=== PATIENT | female | born 1955 | race Caucasian/White ===

== ENCOUNTER 2024-06-13 11:47 | Emergency (ER) | payer MEDICARE, SELFPAY ==
[2024-06-13 11:51] VITALS: BP 139/65; PULSE 88; RESP 18; TEMP 37.2; O2SAT 96; BMI 51.4
--- NOTE | 2024-06-13 12:53 | ED_ITS ---
HPI - Abdominal Pain General Time Seen by Provider: 12:53 Date Seen: 06/13/24 Chief Complaint: Abdominal Pain Stated Complaint: severe left lower abdominal pain Time Seen by Provider: 06/13/24 12:28 Source: patient and RN notes reviewed Mode of arrival: ambulatory Limitations: no limitations History of Present Illness HPI narrative: This 68-year-old female is coming in with intermittent left-sided lower abdominal pain starting around 4:00 a.m. this morning. It awoke her from sleep. Thursday she did have some diarrhea but none since. She also tripped and fell fo rward landing on her walker on Thursday, she has a bruise across her left upper thigh but did not note any abdominal symptoms until this morning. She does have a history kidney stones, last time about 10 years ago. She feels her symptoms are reminiscent. She will have waves of significant pain, will feel chilled and warm with those but no fevers noted. She has also had some nausea and dry heaves with the times of increased pain. Right now she is feeling pretty good, does not need anything for nausea or pain management. She notes no change in urination. She has not had any prior abdominal surgeries per her report. Related Data Home Medications ?Medication ?Instructions ?Recorded ?Confirmed lisinopril 20 1 tab PO DAILY 06/13/24 06/13/24 mg-hydrochlorothiazide 25 mg tablet metoprolol succinate 200 mg 200 mg PO DAILY 06/13/24 06/13/24 tablet,extended release 24 hr Previous Rx's ?Medication ?Instructions ?Recorded ondansetron 4 mg disintegrating 4 mg PO Q6H PRN nausea and 06/13/24 tablet vomiting #10 tabs oxycodone 5 mg tablet 2.5 - 5 mg (0.5 - 1 x 5 mg) PO Q6H 06/13/24 PRN pain #10 tabs tamsulosin 0.4 mg capsule (Flomax) 0.4 mg PO DAILY #7 caps 06/13/24 Allergies Allergy/AdvReac Type Severity Reaction Status Date / Time No Known Drug Allergies Allergy Verified 06/13/24 11:57 Review of Systems Status of ROS Reports: 6 or more systems reviewed and unremarkable except as noted in History and below PFSH PFSH Social History service: No Exam Const: Vital Signs, click to edit/add: Vital Signs - 24 hr 06/13/24 11:51 Temperature 99.0 F Pulse Rate [Right Pulse Oximeter] 88 Respiratory Rate 18 Blood Pressure [Ri ght Forearm] 139/65 Pulse Oximetry 96 Oxygen Delivery Me thod Room Air This 68-year-old female is alert, interactive, no apparent distress, very pleasant. Sclera clear, face atraumatic, able to speak in complete sentences with normal speech. Lungs are clear, good air entry, no wheezing crackles, no tachypnea accessory muscle use. She has a scar in the left shoulder blade area from prior skin lesion removal towards the center of the spine there is an irregular raise lesion on pinkish colored skin, some adherent scale to the area. Patient's attention is drawn to this lesion overlying the spine, do think that this should potentially be biopsied or further evaluated by her primary care lorena blanco. Have told her about this. She has no CVA tenderness. CV regular rate and rhythm, do not hear any significant murmur. Abdomen is obese but soft, no rebound or guarding, no organomegaly. She has no inguinal masses or bulging or tenderness. Documenting provider has reviewed patient's vital signs: yes Course Course ED Course: Patient is having intermittent significant left-sided abdominal pain that does seem to be consistent with renal colic. Will attempt to get a UA, basic labs on her. Will start with CT imaging noncontrast. Does not sound like this is linked any trauma but do need to keep that in consideration. Can consider doing follow-up imaging with IV contrast if deemed to be necessary. Right now patient is clinically stable, did not need any pain or nausea medicines but is aware to update us if this is changing. Other considerations are other intra-abdominal etiologies like diverticulitis other bowel pathologies. Do think urinary system is most likely with renal colic. Reevaluation(s) Time of Reevaluation #1: 15:03 Reevaluation #1: Have advised patient that there is a 4 mm kidney stone on the left side. Did provider copy of the CT. We are waiting kidney functions at this time. Her pain is returning. Will give her some IV fentanyl and IV Zofran while we await kidney functions. Did discuss doing the smooth muscle dilator Flomax, a 4 mm kidney stone should pass but this may help dilate the system. It may take days up to couple weeks to pass. Will plan on discharge to home and and outpatient management. Need to figure out a pain strategy for her and need kidney functions before I can fully decide on that. Time of Reevaluation #2: 15:34 Reevaluation #2: Have reviewed with patient that her kidney function does not allow NSAIDs. We discussed that this is a normal aging process with kidney function. We will have her take Tylenol 1000 mg 3 times a day baseline for pain but did review she will probably need something else. She has used some pain meds in the past but cannot remember what. The fentanyl has helped her here. Will give her some oxycodone to use at home for pain uncontrolled by a baseline Tylenol. She is aware that she will need to follow-up. We have also discussed the Zofran and Flomax. Vital Signs Vital signs: Initial Vital Signs Temperature 99.0 F 06/13/24 11:51 Temperature Source Temporal Artery Scan 06/13/24 11:51 Pulse Rate 88 06/13/24 11:51 Pulse Rhythm Regular 06/13/24 11:51 Pulse Strength 3+ Normal 06/13/24 11:51 Respiratory Rate 18 06/13/24 11:51 Blood Pressure 139/65 06/13/24 11:51 Blood Pressure Mean 89 06/13/24 11:51 Blood Pressure Position Sitting 06/13/24 11:51 Pulse Oximetry 96 06/13/24 11:51 Oxygen Delivery Method Room Air 06/13/24 11:51 Vital Signs Temperature 99.0 F 06/13/24 11:51 Pulse Rate 88 06/13/24 11:51 Respiratory Rate 18 06/13/24 11:51 Blood Pressure 139/65 06/13/24 11:51 Pulse Oximetry 96 06/13/24 11:51 Oxygen Delivery Method Room Air 06/13/24 11:51 Temperature 99.0 F 06/13/24 11:51 Pulse Rate 88 06/13/24 11:51 Respiratory Rate 18 06/13/24 11:51 Blood Pressure 139/65 06/13/24 11:51 Pulse Oximetry 96 06/13/24 11:51 Oxygen Delivery Method Room Air 06/13/24 11:51 Medications Administered Medications: Discontinued Medications Generic Name Dose Route Start Last Admin Trade Name Freq PRN Reason Stop Dose Admin Fentanyl 25 mcg 06/13/24 14:59 06/13/24 15:06 Fentanyl 100 Mcg/2 Ml Inj IVP 06/13/24 15:00 25 mcg ONCE ONE Administration Ondansetron HCl 4 mg 06/13/24 14:59 06/13/24 15:11 Ondansetron 2 Mg/Ml Inj IVP 06/13/24 15:00 4 mg ONCE ONE Administration MDM - Abdominal Pain Lab Data Attestation: I reviewed the patient's lab results. Labs: Lab Results 06/13/24 06/13/24 Range/Units 13:00 14:40 WBC 11.37 H (4.50-11.00) K/uL RBC 4.24 (4.00-5.20) m/uL Hgb 13.2 (12.0-16.0) gm/dL Hct 39.7 (33.0-51.0) % MCV 94 (80-100) fL MCH 31 (26-34) pg MCHC 33 (32-36) gm/dL RDW Coeff of Zakia 12.3 (11.5-15.5) % Plt Count 200 (140-440) K/uL Neut % (Auto) 81.5 H (42.0-72.0) % Lymph % (Auto) 10.3 L (20-44) % Saunders % (Auto) 7.6 (0.0-11.0) % Eos % (Auto) 0.1 (0.0-7.0) % Baso % (Auto) 0.2 (0.0-3.0) % Neut # (Auto) 9.30 H (1.7-7.0) K/uL Lymph # (Auto) 1.20 (0.90-2.90) K/uL Saunders # (Auto) 0.90 (0.00-0.90) K/UL Eos # (Auto) 0.00 (0.00-0.50) K/uL Baso # (Auto) 0.00 (0.00-0.30) K/uL Abs Immat Gran (auto) 0.00 (0.00-0.30) K/uL Imm/Tot Granulo (auto) 0.3 % Sodium 137 (135-149) mmol/L Potassium 4.2 (3.6-5.1) mmol/L Chloride 103 (96-114) mmol/L Carbon Dioxide 28 (20-32) mmol/L Anion Gap 6 L (7-15) mEq/L BUN 25 (7-30) mg/dL Creatinine 0.9 (0.5-1.5) mg/dL Estimated Creat Clear 43.92 Estimated GFR 69 ml/min Glucose 132 H (60-115) mg/dL Lactate 1.5 (0.5-1.9) mmol/L Calcium 9.4 (8.4-10.6) mg/dL C-Reactive Protein 2.1 H (0.5-1.0) mg/dL Urine Color Yellow (Yellow) Urine Appearance Slightly Cloudy A (Clear) Urine pH 5.5 (5.0-8.5) Ur Specific [place] 1.020 (1.000-1.030) Urine Protein 1+ A (Negative) Urine Glucose (UA) Negative (Negative) Urine Ketones Negative (Negative) Urine Blood 3+ A (Negative) Urine Nitrite Negative (Negative) Urine Bilirubin Negative (Negative) Urine Urobilinogen 0.2 (0.2-1.0) Ur Leukocyte Esterase Negative (Negative) Urine RBC 25-50 A (0-2) Urine WBC 2-5 (0-5) Ur Squamous Epith Cells Moderate A (None-Few) Other Sediment Few A (None) Urine Bacteria Moderate A (None) Urine Yeast Few A (None) Imaging Data CT scan - abdomen: Attestation: I have reviewed the pertinent imaging results. My impression: Do feel that there is some changes about the collecting system and left kidney, do visualize mid ureter stone potentially. Await Radiology over-read. Radiologist's impression: Patient: JO EVANS Facility:?[facility] Patient ID:?[id number] Site Patient ID:?[id number]. Site :?[id number] Study:?CT-Abdomen/Pelvis SAFIRE STONE STUDY; WITHOUT-06/13/2024 1:51:40 PM Ordering Physician:Trish Lombardo Final Report: INDICATION: INTERMITTENT LEFT SIDED ABDOMINAL PAIN, NAUSEA, HISTORY OF KIDNEY STONES. TECHNIQUE: CT abdomen and pelvis without contrast. COMPARISON: None. FINDINGS: Limited evaluation of the intra-abdominal solid organs without IV contrast. Lower chest: Unremarkable. Liver: Multiple hypodensities in the right and left hepatic lobes, similar to 2014 likely cysts. No suspicious masses. Gallbladder and bile ducts: No stones or inflammation. No biliary dilatation. Pancreas: Unremarkable. No mass or inflammation. Spleen: Normal in size. No masses. Adrenal glands: Normal in size. No nodules. Kidneys: 4 millimeter stone in the mid left ureter with proximal mild hydronephrosis. Mild left renal atrophy. Stable cyst at the inferior pole of the right kidney. GI tract: Unremarkable. Normal in caliber. No sign of mass or inflammation. Normal appendix. Vasculature: Abdominal aorta is normal in caliber. Lymph nodes: No lymphadenopathy. Peritoneum/Abdominal Wall: Unremarkable. No sign of mass or infiltration. No free air or significant free fluid. Pelvis: Unremarkable. No pelvic masses. Bones: Unremarkable for age. IMPRESSION: 4 millimeter stone in the left mid ureter with proximal mild hydroureteronephrosis. Please note that all CT scans at this facility use dose modulation, iterative reconstruction, and/or weight-based dosing when appropriate to reduce radiation dose to as low as reasonably achievable. Dictated by Gentry Salmon MD @ 06/13/2024 2:09:42 PM (Electronic Signature) Discharge Plan Discharge Clinical Impression: Renal colic on left side Patient Disposition: Home, Self-Care Condition: Stable Instructions: Renal Colic (ED) Additional Instructions: Schedule clinic follow-up within the next week . If the stone is not passing, may need to be referred to Urology which can be done through your primary clinic. Drink plenty of fluids, including water, for goal of keeping urine clear looking. Tylenol a 1000 mg 3 times a day baseline for pain. Take Flomax daily until the stone has passed. If you are getting a prescription for narcotics, they can be constipating and may need bowel management with MiraLax 17 g daily. If MiraLax is not enough, then senna 1-2 tablets once to twice daily can be used as well. Should your pain management be inadequate, develop vomiting, or have fever develop in the context of a kidney stone, need to return to the ER for further evaluation. Activity Level: Activity as Tolerated Prescriptions: New tamsulosin [Flomax] 0.4 mg capsule 0.4 mg PO DAILY Qty: 7 0RF ondansetron 4 mg tablet,disintegrating 4 mg PO Q6H PRN (Reason: nausea and vomiting) Qty: 10 0RF oxycodone 5 mg tablet 2.5 - 5 mg PO Q6H PRN (Reason: pain) Qty: 10 0RF No Action metoprolol succinate 200 mg tablet extended release 24 hr 200 mg PO DAILY lisinopril-hydrochlorothiazide 20-25 mg tablet 1 tab PO DAILY Follow Up/Referrals: Provider,Not a Local [Primary Care Provider] - Stand Alone Forms: [facility] [employer] Info Instructions
--- NOTE | 2024-06-13 13:03 | CRLHL7_ITS ---
For Patients: As a result of the Century Cures Act, medical imaging exams and procedure reports are released immediately into your electronic medical record. You may view this report before your referring provider. If you have questions, please contact your health care provider. INDICATION: INTERMITTENT LEFT SIDED ABDOMINAL PAIN, NAUSEA, HISTORY OF KIDNEY STONES. TECHNIQUE: CT abdomen and pelvis without contrast. COMPARISON: None. FINDINGS: Limited evaluation of the intra-abdominal solid organs without IV contrast. Lower chest: Unremarkable. Liver: Multiple hypodensities in the right and left hepatic lobes, similar to 2014 likely cysts. No suspicious masses. Gallbladder and bile ducts: No stones or inflammation. No biliary dilatation. Pancreas: Unremarkable. No mass or inflammation. Spleen: Normal in size. No masses. Adrenal glands: Normal in size. No nodules. Kidneys: 4 millimeter stone in the mid left ureter with proximal mild hydronephrosis. Mild left renal atrophy. Stable cyst at the inferior pole of the right kidney. GI tract: Unremarkable. Normal in caliber. No sign of mass or inflammation. Normal appendix. Vasculature: Abdominal aorta is normal in caliber. Lymph nodes: No lymphadenopathy. Peritoneum/Abdominal Wall: Unremarkable. No sign of mass or infiltration. No free air or significant free fluid. Pelvis: Unremarkable. No pelvic masses. Bones: Unremarkable for age. IMPRESSION: 4 millimeter stone in the left mid ureter with proximal mild hydroureteronephrosis. Please note that all CT scans at this facility use dose modulation, iterative reconstruction, and/or weight-based dosing when appropriate to reduce radiation dose to as low as reasonably achievable. Dictated by Gentry Salmon MD @ 06/13/2024 2:09:42 PM (Electronically Signed)
[2024-06-13 13:12] LABS: Appearance Urine Slightly Cloudy (Clear); Bilirubin Urine Negative (Negative); Blood Urine 3+ (Negative); Color Urine Yellow (Yellow); Glucose Urine Negative (Negative); Ketones Urine Negative (Negative); Leukocyte Esterase Urine Negative (Negative); Nitrite Urine Negative (Negative); Protein Urine 1+ (Negative); Urobilinogen Urine 0.2 (0.2-1.0); pH Urine 5.5 (5.0-8.5)
--- OUTSIDE RECORDS SUMMARY | 2024-06-13 13:22 | XMS_ITS | Clinical Summary ---
Author Organization [facility] Address [address] [place] [id number] Care Team Providers Care Cs Associate Name Role Phone [facility] Primary Care Provider Allergies No known active allergies Medications acetaminophen (acetaminophen Extra Strength) 500 mg tablet Max acetaminophen dose: 4000mg in 24 hrs. Active calcium with vitamin D3 (OS-SYDNI 500 + D) tablet Take 1 Tablet by mouth once daily. Active cholecalcifero l (Vitamin D-3) 2,000 unit capsule Take 2,000 units by mouth once daily. Active ibuprofen (ADVIL; MOTRIN) 200 mg tablet Active lisinopril-hyd rochlorothiazi de, 20-25 mg, (PRINZIDE, ZESTORETIC) 20-25 mg per tablet Take 1 Tablet by mouth once daily. Active metoprolol succinate SR (TOPROL XL) 200 mg Sustained-Rele ase tablet Take 200 mg by mouth once daily. Active zinc acetate (GALZIN) 50 mg (zinc) cap Active acetaminophen (TYLENOL) 325 mg tabletIndicati ons:Postmenopa usal bleeding Take 1-2 Tablets (325-650 mg) by mouth every 4 hours if needed for Pain. Max acetaminophen dose: 4000mg in 24 hrs. 4 Active ibuprofen (ADVIL; MOTRIN) 200 mg tabletIndicati ons:Postmenopa usal bleeding Take 1-3 Tablets (200-600 mg) by mouth every 6 hours if needed for Pain. 4 Active Social History Tobacco Use Types Packs/Day Years Used Date Smoking Tobacco: Never Smokeless Tobacco: Never Tobacco Cessation:Counseling Given: Not Answered Alcohol Use Standard Drinks/Week Comments Never 0 (1 standard drink = 0.6 oz pur e alcohol) 0-1/month Comments No Sex and Gender Information Value Date Recorded Sex Assigned at Not on file Legal Sex Female 3:34 PM CDT Gender Identity Not on file Sexual Orientation Not on file Obstetrics History Last Filed Vital Signs Vital Sign Reading Time Taken Comments Blood Pressure 141/66 08/26/2023 11:00 AM CDT Pulse 75 08/26/2023 11:00 AM CDT Temperature 36.3 C (97.3 F) 08/26/2023 11:00 AM CDT Respiratory Rate 16 08/26/2023 11:00 AM CDT Oxygen Saturation 96% 08/26/2023 11:00 AM CDT Inhaled Oxygen Concentration - - Weight 133.4 kg (294 lb) 08/26/2023 6:44 AM CDT Height 157.5 cm (5' 2) 08/26/2023 6:44 AM CDT Body Mass Index 53.77 08/26/2023 6:44 AM CDT Plan of Treatment Health Maintenance Due Date Last Done Comments Tdap 1965 Depression screening for age 12+ 1966 BMI (ht and wt on same day) for age 18+ 1972 Hepatitis C screening for age 18-79 1972 Tetanus booster 1974 Colonoscopy through age 75 07/06/1999 Lipids for age 45-75 07/06/1999 Mammogram for age 45-75 07/06/1999 Pneumococcal series for age 50+ (1 of 1 - PCV) 005 Zoster (shingles) series for age 50+ (1 of 2) 07/06/19 05 RSV vaccine for adults or pr egnancy (1 - Risk 60-74 years 1-dose series) 2014 DEXA/DXA scan for age 65+ 07/06/2019 COVID-19 vaccine series (2 - 2023- season) 2023 Influenza Vaccine (#1) 2023 Insurance [facility] MEDICARE PART A HB ONLY Advance Directives * Full Code (Latest Code Status on File) Date Activated Date Inactivated Comments 08/26/2023 6:33 AM 08/26/2023 1:48 PM Question Answer Comments Code Status Discussion: Reviewed Preferences Care Teams Cs Associate Relationship Specialty Start Date End Date [facility] [id number] [place] [id number] PCP - General 08/24/23
--- OUTSIDE RECORDS SUMMARY | 2024-06-13 13:22 | XMS_ITS | Clinical Summary ---
[facility] Organization [facility] Address [address] [place] [address] Care Team Providers Care Utility Bag Assembler Name Role Phone Carmen Paige PA-C Primary Care Provider [phone] Source Comments You are receiving this document as you are listed as the primary care provider,follow-up provider, or the patient has been referred to you for consultation.This is in compliance with the Medicare and[facility] E[facility] Incentive [facility],which states Providers who transition their patient to another setting of careor provider of care or refers their patient to another provider of care shouldprovide summary care record for each transition of care or referral. [facility] Allergies No known active allergies Medications Zinc 50 MG 12/22/2019 Active acetaminophen 500 MG capsule 03/19/2020 Acti ve Ibuprofen 200 MG capsule 06/06/2020 Active cholecalciferol (VITAMIND3) 50 MCG (1999 UT) tablet Take 1 Tablet (2,000 Units) by mouth daily. Active metoprolol succinate (TOPROL-XL) 200 MG 24 hour release tabletIndication s:Hypertension, unspecified type (HRC) TAKE 1 TABLET BY MOUTH DAILY 90 Tablet 1 02/25/2024 Active lisinopril-hydro CHLOROthiazide (PRINZIDE) 20-25 MG tabletIndication s:Hypertension, unspecified type (HRC) TAKE 1 TABLET BY MOUTH DAILY 90 Tablet 1 02/25/2024 Active Active Problems Problem Noted Date Diagnosed Date Submucous uterine fibroid 08/26/2023 Postmenopausal bleeding 08/14/2023 H/O parathyroidectomy 06/03/2023 Chronic pain of both knees 05/01/2016 Overview (02/01/2017): 08/2016-L knee, [place]-must get to BMI of 40 prior to surgery Nephrolithiasis 01/23/2014 Overview (01/23/2014): 01/21/2014-[facility] L ureteral colic and hydronephrosis per CT scan Hepatic steatosis 01/23/2014 Overview (01/23/2014): 01/21/2014-on CT IFG (impaired fasting glucose) 2013 Overview (01/07/2016): GLUCOSE,FASTING (mg/dl) Date Value 07/04/2013 111* GLUCOSE (mg/dl) Date Value 10/09/2014 108 07/04/2013 111* Vitamin D deficiency 03/01/2012 Overview (2013): Component Latest Ref Rng 07/04/2013 VITAMIN D, 25-OH, TOT 30.0 - 80.0 ng/mL 14.5 (L) Ergocalciferol 50,000 IU q week for 12 weeks Obesity 02/27/2012 LDL GOAL < 130 09/02/2007 Overview (2013): 2013 National Cholesterol Education Program risk factors for heart disease-2 1 - Hypertension, even if controlled, 1 - Age >45 for Male, >55 for Female and Total # of Risk Factors for this patient = 2 LDL, CALC. (mg/dl) Date Value 07/04/2013 97 Hypertension 03/06/2006 Overview (08/27/2009): 02/25 LISINOPRIL-HYDROCHLOROTHIAZIDE 20-25 MG OR TABS 09/02/2007 increase ATENOLOL 75 MG OR TABS 08/27/2009 stop ATENOLOL and Add Metoprolol XL 100 mg with option to increase to 200 mg if not under control Resolved Problems Problem Noted Date Diagnosed Date Resolved Date Primary hyperparathyroidism 01/15/2023 06/03/2023 Depression 02/27/2012 2013 Immunizations Immunization Administration Dates Next Due Flu Vac (3+ yrs) 01/08/2007,01/29/2006 HepA Adult (19+ yrs) 04/14/2007,03/31/2006 HepB Adult (Engerix-B, 20+ y rs, 3 dose series) 07/03/2008(Deferred: Immune by Titer),03/23/1986,04/23/1984,03/23/1984 Influenza IIV4 (Quadrivalent ) 0.5mL (14306) 04/04/2021,03/04/2019,02/25/2018,2016,01/07/2016 Influenza IIV4 (Quadrivalent ) Fluad, 65+ Yrs 05/08/2023,03/26/2020 Influenza, Unspecified Formulation 01/05/2012 MCV4 (Menactra) 04/14/2007 MMR 07/03/2008(Deferred: Immune by Titer),01/29/2006 Moderna COVID-19 12+ 05/08/2023 PPSV23 (Pneumovax) 03/26/2020 Pfizer Monovalent 12+ Purple Top 04/04/2021,03/0 08/2020,05/05/2020 Rubella 11/21/1987(Deferred: Immune by T iter) Td (7+ yrs) 01/30/2017 Tdap 01/30/2006 Typhoid (Typhim Vi, IM) 06/27/2008,03/31/2006 Varicella 07/07/2008(Deferred: Immune by Titer),03/05/2006(Deferred: Immune by Disease) Zoster (Zostavax) 01/07/2016 Family History Medical History Relation Name Comments Coronary Artery Disease Father TP lst [place]-60s Heart Disease Father TP CHF Cataract Mother EP Cerebrovascular Disease Mother EP Diabetes, Type II Mother EP borderlin e Hypertension Mother EP Stroke Mother EP Massive stroke before Cancer Brother 1 FP Cholangiocarcin jim Dx 2018,treated, no CA found 06/20/2019 when had liver transplant Cataract Brother 1 FP Hypertension Brother 1 FP Kidney/Bladder Disease Brother 1 FP Chron ic kidney disease post liver transplant Hypertension Brother 2 Error elevated LFTs Obesity Brother 3 Cancer, Colon Other 1 paternal uncle -Dx 50s Cerebrovascular Disease Other 2 lst cousin-60s, aunt-70s Hypertension Sister 3 TM Hypertension Sister 4 RJN Obesity Sister 4 RJN Hypertension Sister 5 RN Cancer, Breast Negative Family History Relation Name Status Comments Father TP (Age 76) CHF Mother EP (Age 95) CVA Brother 1 FP Alive Brother 2 Error Brother 3 Maternal Grandfather Maternal Grandmother Other 1 Other 2 Paternal Grandfather Paternal Grandmother Sister 1 Alive Sister 2 Alive Sister 3 TM Sister 4 RJN Sister 5 RN Social History Tobacco Use Types Packs/Day Years Used Date Smoking Tobacco: Never Smokeless Tobacco: Never Tobacco Cessation:Counseling Given: Not Answered Alcohol Use Standard Drinks/Week Comments No 0 (1 standard drink = 0.6 oz pur e alcohol) 0-1/mo Humiliation, Afraid, Rape, and Kick questionnair e Answer Date Recorded Fear of Current or Ex-Partner Not on file Emotionally Abused Not on file 05/21/2023 Within the last year, have y ou been kicked, hit, slapped, or otherwise physically hurt by your partner or ex-partner? No 05/21/2023 Within the last year, have y ou been raped or forced to have any kind of sexual activity by your partner or ex-partner? 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 file retired Not on file Not on file Not on file Last Filed Vital Signs Vital Sign Reading Time Taken Comments Blood Pressure 160/97 09/21/2023 10:42 AM CDT Pulse 82 09/21/2023 10:42 AM CDT Temperature 36.9 C (98.4 F) 06/03/2023 10:58 AM CDT Respiratory Rate 19 05/22/2023 8:18 AM FITNESS TRAINER Oxygen Saturation 94% 05/22/2023 8:18 AM FITNESS TRAINER Inhaled Oxygen Concentration - - Weight 132.9 kg (293 lb) 08/24/2023 12:59 PM CDT Height 159.5 cm (5' 2.8) 08/24/2023 12:59 PM CD T Body Mass Index 52.24 08/24/2023 12:59 PM CDT Plan of Treatment Health Maintenance Due Date Last Done Comments RSV (1 - Risk 60-74 years 1-dose series) 2014 Zoster/Shingles (2 of 3) 03/03/2016 01/07/2016 Pneumococcal 50+ Yrs (2 of 2 - PCV) 03/26/2021 03/26/2020 Mammogram 10/24/2023 10/23/2022, 01/22, 07/01/2013, Additional history exists COVID-19 Vaccine ( season) 2023 05/08/2023, 04/04/2021, 05/26/2020, Additional history exists Influenza (#1) 2023 05/08/2023, 03/23, 03/26/2020, Additional history exists Medicare Annual Wellness Visit 03/23/2024 05/08/2023, 08/29/2022, 08/29/2022, Additional history exists Prediabetes: HGBA1C 05/08/2024 05/08/2023, 03/19/2022, 03/26/2020, Additional history exists FIT Colon Cancer Screening 11/15/202411/15, 09/04/2022, 04/12/2021, Additional history exists DTaP/Tdap/Td (3 - Tdap) 01/30/2027 01/30/2017, 01/30 Cholesterol 05/08/2028 05/08/2023, 02/21, 02/25/2018, Additional history exists HepB Completed 03/23/1986, 03/1984, 03/23/1984 HepA Completed 04/14/2007, 03/31/2006 MCV4 Aged Out 04/14/2007 No longer eligi ble based on patient's age to complete this topic Hep C Screening (Preventive Services) Completed 01/30/2017 Dexa Completed 11/14/2022 Hib Aged Out No longer eligi ble based on patient's age to complete this topic IPV (Polio) Aged Out No longer eligi ble based on patient's age to complete this topic Meningococcal B Aged Out No longer el igible based on patient's age to complete this topic Procedures Procedure Name Priority Date/Time Associated Diagnosis Comments FIT,OCCULT BLOOD, STOOL Routine 11/16/2023 12:15 PM CDT Screening for malignant neoplasm of colon HGB A1C Routine 05/08/2023 10:35 AM FITNESS TRAINER Pre-diabetes IFG (impaired fasting glucose) LIPID PANEL & DIRECT LDL (IF NEEDED) Routine 05/08/2023 10:35 AM FITNESS TRAINER Screening for hyperlipidemia DXA BONE DENSITY SPINE/HIP/FOREARM Routine 11/14/2022 11:44 AM CDT Hyperparathyroidism (HRC) Hypercalcemia History of kidney stones MM MAMMOGRAM SCREENING BILAT W 3D AYAKA W CAD Routine 10/23/2022 11:42 AM CDT Encounter for screening mammogram for malignant neoplasm of breast HEPATITIS C ANTIBODY, WITH REFLEX Routine 01/30/2017 3:05 PM FITNESS TRAINER Need for hepatitis C screening test from Last 3 Months or Most Recently Relevant to Health Maintenance Results * FIT Colon Rectal Cancer Screening (11/16/2023 12:15 PM CDT) FIT Specimen 1 Negative Negative 11/26/2023 2:22 AM CDT [facility] Stool Non-blood Collection / Unknown 11/16/2023 12:15 PM CDT 11/25/2023 3:25 PM CDT us Ivet Alexander PA-C LAB_1 Final Result [place] [id number] [facility] [address] * Lipid Panel and Direct LDL(If Needed) (05/08/2023 10:35 AM FITNESS TRAINER) Cholesterol 144 0 - 199 mg/dL 05/08/2023 3:23 PM [facility] Triglyceride 89 <=149 mg/dL 05/08/2023 3:23 PM [facility] HDL Cholesterol 59 >=40 mg/dL 05/08/2023 3:23 PM [facility] LDL, Calculated 67 <130 mg/dL 05/08/2023 3:23 PM [facility] Non HDL Chol, Calculated 85 <=159 mg/dL 05/08/2023 3:23 PM [facility] Cholesterol/HDL Ratio 2.4 <=5.0 05/08/2023 3:23 PM [facility] Hours Fasting 12.0 8 - 12 Hours 05/08/2023 3:23 PM [facility] Blood Venipuncture / Unknown 05/08/2023 10:35 AM FITNESS TRAINER 05/08/2023 10:35 AM [facility] Ivet Alexander PA-C LAB_1 Final Result [facility] [address] [address] [address] [place] [address] * (ABNORMAL) Hgb A1C (05/08/2023 10:35 AM FITNESS TRAINER) Hemoglobin A1C 6.3(H) <=5.6 % 05/08/2023 4:30 PM [facility] Estimated Average Glucose (Calc) 134 < 117 mg/dL 05/08/2023 4:30 PM [facility] Comment:Estimated average gl ucose (eAG) converts A1c into glucose units (mg/dL) and estimates average glucose over the past approximately 3 months. The eAG reference interval (<117 mg/dL) corresponds to an A1c of <5.7%. Blood Venipuncture / Unknown 05/08/2023 10:35 AM FITNESS TRAINER 05/08/2023 10:35 AM [facility] Narrative [facility] - 05/08/2023 4:30 PM FITNESS TRAINER For patients not previously diagnosed with diabetes: 5.7-6.4%: Increased risk for diabetes 6.5% and greater: Diagnostic for diabetes For patients diagnosed with diabetes: <8.0%: Goal of therapy for ages 18-75 Clinicians may recommend a higher or lower goal for specific individuals. us Ivet Alexander PA-C LAB_1 Final Result [facility] [address] * DXA Bone Density Spine/Hip/Forearm (11/14/2022 11:44 AM CDT) DXA Lumbar Spine Bone Mineral Density 1.674 gm/cm2 EXTERNAL RESULTS DXA Lumbar Spine T-Score 5.7 EXTERNAL RESULTS DXA Lumbar Spine Z-Score 7.7 EXTERNAL RESULTS DXA Hip Left Bone Mineral Density 1.136 gm/cm2 EXTERNAL RESULTS DXA Hip Left T-Score 1.6 EXTERNAL RESULTS DXA Hip Left Z-Score 3.0 EXTERNAL RESULTS DXA Femur Left Bone Mineral Density 0.953 gm/cm2 EXTERNAL RESULTS DXA Femur Left T-Score 0.9 EXTERNAL RESULTS DXA Femur Left Z-Score 2.6 EXTERNAL RESULTS DXA Forearm Bone Mineral Density 0.913 gm/cm2 EXTERNAL RESULTS DXA Forearm T-Score 3.7 EXTERNAL RESULTS DXA Forearm Z-Score 5.6 EXTERNAL RESULTS Anatomical Region Laterality Modality Lower Extremity, Upper Extremity, Spine, Hip, L- Spine, Forearm Other Narrative 11/16/2022 2:10 PM CDT Table formatting from the original result was not included. Patient Name: Susy Lindquist Densitometer: [employer] Appt Dept/Resource: Hs Radiology Dxa HS DXA Demographics Age: 67 y.o. Gender: Female Height: 5' 2.2 (1.58 m) Height at age 24: 5'4 Weight: 298 lb (135.2 kg) Race: Medical/Surgical History Menstrual periods: None Age of menopause: 48 Able to stand from a chair easily without use of the arms?: Yes, with difficulty How many falls indoors/outdoors within the last 12 months?: 0 History of fractures in parents: No History of previous fractures?: No Hip replacement?: No Oral cortisone or steroid medication for more than 3 months?: No Currently or have taken medications to treat osteoporosis?: No Taking any aromatase inhibitor medication for breast cancer - anti-estrogen excluding tamoxifen?: No Have had the following medical conditions: Overactive parathyroid gland with elevated blood calcium (Hyperparathyroidism) Dietary/Habit Alcohol 3 units or more per day on average?: No Currently smoking tobacco? No Daily servings of calcium rich food: 1 Do you take a daily calcium supplement?: No Dual-X-ray Absorptiometry (DXA) Results Skeletal Site BMD (gm/cm2) T-Score Z-Score % Change from Previous Scan dated: N/A Spine (L1, L2, L3, L4) 1.674 5.7 7.7 N/A Left Hip (Total) 1.136 1.6 3.0 N/A Left Hip (Femoral neck) 0.953 0.9 2.6 N/A Right Hip (Total) N/A N/A N/A N/A Right Hip (Femoral neck) N/A N/A N/A N/A Forearm (1/3) (Left) 0.913 3.7 5.6 N/A *N/A indicates that measurements were either not needed or not valid Comments: *Degenerative joint disease, compression fractures, or calcification artifacts may falsely increase bone mineral density. Diagnosis: *No evidence of osteopenia/osteoporosis Recommendations:. *Recommend lifestyle modifications as needed, including proper calcium/vitamin d intake, weight bearing exercises, and fall prevention. *Consider follow up DXA in 10 years, unless clinical circumstances change. FRAX Explanation: The 10 year risks of hip and major osteoporotic fractures (clinical spine, forearm, hip or shoulder fracture) are calculated by the FRAX algorithm based on femoral neck bone density, age, gender, race/ethnicity, weight, height, previous fracture, parental hip fracture, smoking status, glucocorticoid intake, history of RA, secondary osteoporosis, and high alcohol consumption. FRAX fracture risk estimates are adjusted for Trabecular Bone Score (TBS) when available. Trabecular Bone Score (TBS) is a measure of the microarchitectural integrity of trabecular bone, and is derived from the [id number] changes of bone density embedded in the AP spine BMD image. TBS is only modestly correlated with BMD, and is modestly associated with incident major osteoporotic and hip fractures independent of BMD and other risk factors. FRAX Fracture Risk Categories in terms of major osteoporotic fractures: < 10% = low fracture risk = 10% and <15% = mildly increased fracture risk = 15% and <20% = moderately increased fracture risk = 20% and <30% = high fracture risk = 30% = very high fracture risk National Osteoporosis Foundation Treatment Guideline A clinician may consider FDA-approved medical therapies in postmenopausal women and men aged 50 years and older, if one or more of the following is present (clinical correlation required and therapy may not always be indicated): The patient has a hip or vertebral fracture. T-score = -2.5 at the femoral neck, hip, or spine after appropriate evaluation to exclude secondary causes. Low bone mass (T-score between -1.0 and -2.5 at the femoral neck, hip or spine) and a 10-year probability of a hip fracture = 3% or a 10-year probability of a major osteoporosis-related fracture = 20% based on the FRAX scores. Letty Paz MD RAD DEXA Final Res ult * MM Mammogram Screening Bilat W 3D Ayaka W CAD (10/23/2022 11:42 AM CDT) Anatomical Region Laterality Modality Breast Bilateral Mammography Impressions 10/28/2022 8:24 AM CDT : ACR BI-RADS Category 1: Negative RECOMMENDATION: Follow Up Imaging in 12 months - Bilateral The results and recommendations of this examination will be communicated to the patient. Narrative 10/28/2022 8:24 AM CDT MM MAMMOGRAM SCREENING BILAT W 3D AYAKA W CAD performed on 10/23/22 Compared to: 02/19/2016 MM Mammogram Screening Bilat W Ayaka W CAD, 07/01/2013 MAMMOGRAM SCREENING BILATERAL, and 09/05/2011 MAMMOGRAM SCREENING BILATERAL FINDINGS: Bilateral screening mammogram was performed with the assistance of Computer-Aided Detection and breast tomosynthesis. The breasts have scattered areas of fibroglandular density. There is no radiographic evidence of malignancy. us Ivet Alexander PA-C RAD BETH Final Result * HEP C recommended for patients born between [id number] (01/30/2017 3:05 PM FITNESS TRAINER) Anti-HCV Negative (Non Reactive) [facility] Comment: Antibodies to HCV not detected. Does not exclude the possibility of exposure to HCV. 01/30/2017 3:05 PM FITNESS TRAINER 01/30/2017 3:07 PM FITNESS TRAINER Narrative [facility] - 01/30/2017 7:06 PM FITNESS TRAINER Performed at [facility], [address] [place] [id number] us Renu Chance CRM MARKETING SPECIALIST, PLASTER MAKER LAB_1 Jenni l Result [facility] [phone] from Last 3 Months or Most Recently Relevant to Health Maintenance Insurance [facility] MEDICARE ADVANTAGE [facility] MEDICARE ADVANTAGE Advance Directives * Full Code (Latest Code Status on File) Date Activated Date Inactivated Comments 05/21/2023 6:38 PM 05/22/2023 12:16 PM Care Teams Utility Bag Assembler Relationship Specialty Start Date End Date Carmen Paige, LETICIA [address] [place] [address] PCP - General 05/23/24
--- OUTSIDE RECORDS SUMMARY | 2024-06-13 13:22 | XMS_ITS | Encounter Summary ---
Author Organization [facility] Address [address] [place] [address] Care Team Providers Care Boil Off Worker Name Role Phone Carmen Paige PA-C Primary Care Provider [phone] Encounter Details Date Type Department Care Team (Late st Contact Info) Description 01/07/2016 Correspondence External to External, [place] [address] VACCINE PAW Social History Tobacco Use Types Packs/Day Years Used Date Smoking Tobacco: Never Smokeless Tobacco: Never Alcohol Use Standard Drinks/Week Comments No 0 (1 standard drink = 0.6 oz pur e alcohol) 0-1/mo Comments No Sex and Gender Information Value Date Recorded Sex Assigned at Not on file Legal Sex Female 3:59 AM CDT Gender Identity Not on file Sexual Orientation Not on file 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
--- OUTSIDE RECORDS SUMMARY | 2024-06-13 13:22 | XMS_ITS | Encounter Summary ---
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
[2024-06-13 13:24] LABS: Bacteria Urine Moderate; RBC Urine 25-50 (0-2); Squamous Epithelial Cell Urine Moderate (None-Few)
[2024-06-13 13:25] LABS: Other Sediment Urine Few
[2024-06-13 14:44] LABS: Lactate* 1.5 mmol/L (0.5-1.9)
[2024-06-13 14:45] LABS: Basophils Percent Auto 0.2 % (0.0-3.0); Eosinophils Percent Auto 0.1 % (0.0-7.0); Hematocrit 39.7 % (33.0-51.0); Hemoglobin* 13.2 gm/dL (12.0-16.0); Immature Granulocytes Pct Auto 0.3 %; Lymphocytes Percent Auto 10.3 % (20-44); Mean Corpuscular HGB Conc 33 gm/dL (32-36); Mean Corpuscular Hemoglobin 31 pg (26-34); Mean Corpuscular Volume 94 fL (80-100); Monocytes Percent Auto 7.6 % (0.0-11.0); Neutrophils Percent Auto 81.5 % (42.0-72.0); Platelet Count* 200 K/uL (140-440); RDW Coefficient of Variation % 12.3 % (11.5-15.5); Red Blood Count 4.24 m/uL (4.00-5.20); White Blood Count* 11.37 K/uL (4.50-11.00)
[2024-06-13 14:46] LABS: Slide Review Reflex No
[2024-06-13 15:06] LABS: Chloride* 103 mmol/L (96-114); Potassium* 4.2 mmol/L (3.6-5.1); Sodium* 137 mmol/L (135-149)
[2024-06-13] MEDS: fentaNYL 100 MCG/2 ML inj 25 MCG IVP (15:06)
[2024-06-13 15:09] LABS: Anion Gap 6 mEq/L (7-15); Blood Urea Nitrogen* 25 mg/dL (7-30); Calcium* 9.4 mg/dL (8.4-10.6); Carbon Dioxide* 28 mmol/L (20-32); Creatinine* 0.9 mg/dL (0.5-1.5); Est. Creatinine Clearance* 43.92; Estimated Glomerular Filt Rate 69 ml/min; Glucose* 132 mg/dL (60-115)
[2024-06-13] MEDS: ONDANSETRON 2 MG/ML inj 4 MG IVP (15:11)
[2024-06-13 15:12] LABS: C Reactive Protein* 2.1 mg/dL (0.5-1.0)
== END 2024-06-13 15:47 | disposition home or self-care (01) ==
PROVIDERS: Emergency Provider Family Medicine
DX: N23 Unspecified renal colic (principal)
CPT/HCPCS: 36415; 74176; 80048; 81001; 83605; 85025; 86140; 87086; 96374; 96375; 99284; J2405; J3010